=== PATIENT | male | born 1945 | race Caucasian/White ===

== ENCOUNTER 2019-07-04 11:50 | Outpatient (CLI) | payer MEDICARE ==
[~2019-07-04 11:50] MED LIST: REGADENOSON 0.4 MG/5 ML SYRINGE ONE
== END 2019-07-04 23:59 | disposition home or self-care (01) ==
LOC: CFH 11:50
PROVIDERS: ATTEND Internal Medicine Cardiovascular Disease
DX: Z01.810 Encounter for preprocedural cardiovascular examination (principal); I48.91 Unspecified atrial fibrillation
CPT/HCPCS: 78452; 93017; A9502; J2785